=== PATIENT | female | born 1970 | race Caucasian/White ===

== ENCOUNTER → 2016-10-29 | Outpatient (REF) | payer OTHER ==
[2016-10-29 13:34] LABS: FOLLICLE STIMULATING HORMONE 61.1 mIU/mL; LUTEINIZING HORMONE 26.1 mIU/mL
== END ==
LOC: M LABDRAW1 12:00
PROVIDERS: ATTEND Internal Medicine
DX: E03.9 Hypothyroidism, unspecified (principal)

== ENCOUNTER → 2017-01-07 | Outpatient (REF) | payer OTHER | LOC: M LAB REF 16:53 | PROVIDERS: ATTEND Internal Medicine | DX: E03.9 Hypothyroidism, unspecified (principal) ==

== ENCOUNTER → 2017-02-19 | Outpatient (REF) | payer OTHER | LOC: M LAB REF 13:20 | PROVIDERS: ATTEND Internal Medicine | DX: E03.9 Hypothyroidism, unspecified (principal) ==

== ENCOUNTER → 2017-03-04 | Outpatient (REF) | payer OTHER ==
[2017-03-04 19:45] LABS: CONTROL LINE HCG INT CTR LINE PRESENT
== END ==
LOC: M LAB REF 18:57
PROVIDERS: ATTEND Internal Medicine
DX: R11.0 Nausea (principal)

== ENCOUNTER → 2017-05-08 | Outpatient (REF) | payer OTHER ==
[2017-05-08 16:29] LABS: TOTAL T3 121.6 NG/DL (60.0-181.0)
== END ==
LOC: M LAB REF 15:16
DX: E03.9 Hypothyroidism, unspecified (principal)

== ENCOUNTER → 2017-08-06 | Outpatient (REF) | payer OTHER ==
[2017-08-08 00:08] LABS: TISSUE TRANSGLUTAMINASE IgA <2 U/mL (0-3)
== END ==
LOC: M LAB REF 12:04
DX: K58.2 Mixed irritable bowel syndrome (principal)
CPT/HCPCS: 82784

== ENCOUNTER → 2018-01-20 | Outpatient (CLI) | payer OTHER | LOC: M OUTALCOH 10:35 | DX: Z13.89 Encounter for screening for other disorder (principal) ==

== ENCOUNTER 2018-01-30 14:45 | Outpatient (RCR) | payer OTHER | END 2018-02-21 | LOC: M OUTALCOH 14:45 | DX: Z03.89 Encounter for observation for other suspected diseases and conditions ruled out (principal) ==

== ENCOUNTER 2018-12-22 11:50 | Day surgery (SDC) | payer OTHER ==
[~2018-12-22] VITALS: Ht 160 cm; Wt 70.4 kg
[~2018-12-22 11:50] MED LIST: BUPIVACAINE HCL 0.25% 30 ML VIAL As Ordered ONE; BUPIVACAINE LIPOSOME/PF 1.3% 20ML VIAL (13.3MG/ML)(EXPAREL)(C9290 PER1MG) As Ordered ONE; BUPIVACAINE/EPIN 0.5% 30 ML VIAL As Ordered ONE; CELE1CAP4 PO; CYCL10TA PO; CelecoXIB 400 MG CAP PO ONE; DULO1CAP4 PO; EPINEPHrine INJ 1 MG/ML 1ML AMP As Ordered ONE; GABA-1171 PO; GABAPENTIN 300 MG CAP PO ONE; KLON1TAB PO; LR 1,000 ML IV ONE; PERCOCET 5MG/325MG TAB PO ONE; SYNT125T PO; THROMBIN SOLN 20,000 UNITS KIT As Ordered ONE; TRANEXAMIC ACID 100 MG/ML 10ML VIAL As Ordered ONE; TRIV1TAB2 PO; ceFAZolin SOD 2 GM in IV 1 EA IV ONE
[2018-12-22] MEDS ORDERED: BACITRACIN PWD 50,000 UNITS VIAL As Ordered ONE (11:51)
[2018-12-22] MEDS ORDERED: MIDAZOLAM INJ 2 MG/2 ML VIAL (J2250) As Ordered ONE (12:06)
[2018-12-22] MEDS ORDERED: fentaNYL 250 MCG/5 ML INJECTION (J3010) As Ordered ONE (12:06)
[2018-12-22] MEDS ORDERED: PROPOFOL 200 MG/20 ML VIAL As Ordered ONE (12:06)
[2018-12-22] MEDS ORDERED: LIDOCAINE 2% INJ 100 MG/5 ML SDV (FOR ANES.) As Ordered ONE (12:06)
[2018-12-22] MEDS ORDERED: ROCURONIUM BROMIDE 50 MG/5 ML VIAL As Ordered ONE (12:06)
[2018-12-22 12:52] LABS: URINE PREG TEST NEGATIVE (NEGATIVE)
[2018-12-22] MEDS ORDERED: METOCLOPRAMIDE INJ 10MG/2ML VIAL (J2765) As Ordered ONE (14:05)
[2018-12-22] MEDS ORDERED: KETOROLAC 60 MG/2 ML VIAL (J1885) As Ordered ONE (14:05)
[2018-12-22] MEDS ORDERED: ONDANSETRON 4MG/2ML VIAL (J2405) As Ordered ONE (14:05)
[2018-12-22] MEDS ORDERED: dexameTHASONE 4 MG/ML 1ML VIAL (J1100) As Ordered ONE (14:06)
[2018-12-22] MEDS ORDERED: fentaNYL 100 MCG/2 ML INJECTION (J3010) As Ordered ONE (15:56)
[2018-12-22] MEDS: LR 1,000 ML IV SCH (16:00)
[2018-12-22] MEDS ORDERED: PROMETHAZINE INJ 25 MG/ML VIAL (J2550) IV PRN ×2 (16:00→16:15)
[2018-12-22] MEDS ORDERED: PERCOCET 5MG/325MG TAB PO PRN (16:00)
[2018-12-22] MEDS ORDERED: CYCLOBENZAPRINE 10 MG TAB PO PRN (16:00)
--- NOTE | 2018-12-22 16:00 | REP ---
Partial lumbar spine series: Single view. Intra-op. History: Right L5-S1 micro-discectomy. Cross-table lateral portably obtained lumbar spine radiograph time stamped 2:11 p.m. demonstrates a intraoperative probe at the dorsal aspect of the lumbar canal at the level of the L5-S1 disc. Electronically Signed by Wally Guerra MD 12/22/2018 04:15 P
[2018-12-22] MEDS ORDERED: oxyCODONE 5MG TAB PO PRN (16:15)
[2018-12-22] MEDS ORDERED: HYDROmorphone HCL 2 MG/ML 1ML VIAL (J1170) IV PRN (16:15)
[2018-12-22] MEDS ORDERED: HYDROMORPHONE HCL 0.5 MG/ 0.5 ML SYRINGE (J1170 PER 1) IV PRN (16:15)
[2018-12-22] MEDS ORDERED: METOCLOPRAMIDE INJ 10MG/2ML VIAL (J2765) IV PRN (16:15)
[2018-12-22] MEDS ORDERED: fentaNYL 100 MCG/2 ML INJECTION (J3010) IV PRN (16:15)
[2018-12-22] MEDS ORDERED: LR 1,000 ML IV SCH (16:15)
[2018-12-22] MEDS ORDERED: ONDANSETRON 4MG/2ML VIAL (J2405) IV PRN (16:15)
[2018-12-22] MEDS ORDERED: LEVO200T31 PO (16:17)
[2018-12-22] MEDS ORDERED: CLON0.5T8 PO (16:17)
--- NOTE | 2018-12-22 19:00 | RO ---
DATE OF PROCEDURE: 12/22/2018 PREOPERATIVE DIAGNOSIS: Right L5-S1 disc extrusion producing right lower extremity radiculopathy. POSTOPERATIVE DIAGNOSIS: Right L5-S1 disc extrusion producing right lower extremity radiculopathy. PROCEDURE PERFORMED: Right L5-S1 microdiscectomy. FINDINGS: Include extruded subligamentous right-sided disc herniation near the pedicle of S1, elevating the S1 nerve root. SURGEON: Romero Jeter MD DIRECTOR OF COLLECTIONS: Solis West, Physician Certified Court/Medical Interpreter ANESTHESIA: General. ESTIMATED BLOOD LOSS: Less than 30 mL, replaced with crystalloid. No complications. INDICATIONS: Discomfort radiating down the right lower extremity, MRI evidence of disc extrusion. The patient has elected for operative intervention. Consent reviewed in detail including a rick discussion of the pathology involved, the procedure proposed, alternatives including doing nothing, the risks including but not limited to pain, failure, infection, bleeding, blood loss, incomplete relief of symptoms, nerve injury, need for more surgery and other issues. The patient agrees to proceed. DESCRIPTION OF PROCEDURE: Identified in the holding area, site and side verified, brought to the operating room. Once anesthesia was administered, she was positioned on the Brad frame for exposure of the lumbar spine, knees slightly flexed. Axillary rolls were utilized, Brad frame elevated. Once I and the acute care clinical nurse specialist were comfortable with the patient's positioning, she was then sterilely prepped and draped in the usual fashion. We palpated bony landmarks. Mr. West outlined the incision, and I confirmed the incision by palpation. We infiltrated the incision with 0.25% Marcaine with epinephrine. Next, I utilized 3.5 loupe magnification and a headlamp at the first portion of the procedure and later we brought in the sterilely draped operative microscope. I looked through oculars on the right, Mr. West on the left. The incision was 2 cm, made with a 10 blade, developed down through skin and subcuticular tissues to the posterior lumbar fascia. Posterior lumbar fascia was reflected off the spinous process of L5 and S1, and I dissected out along the L5 lamina. I drilled the divot using the high-speed bur and the posterior L5 lamina, placed the Tafoya Clark probe, obtained a cross-table lateral x-ray to verify our level. Once this was accomplished, I exchanged my loupe and headlamp for the microscope. We placed the cervical Shadow-Line/Versa-Trac retractor and used that as there were smaller blades to facilitate the 2 cm incision. Next, I utilized the use of the microscope, facilitated participation of Mr. West as well as use of the high-speed bur. The high-speed bur was then utilized to implement a right unilateral laminotomy of the L5 level extending superiorly toward the bare area of L5. The facet complex was only lightly debrided, less than 10% of the medial wall of the facet complex inferiorly to the bare area of S1. I then elevated the ligamentum flavum using a #4-0 curette and then removed it using Kerrisons and pituitaries exposing the thecal sac. The traversing S1 nerve root was appreciated to be elevated, and I used the Tafoya Clark probe to sweep the nerve root medially. There was a significant lateral subligamentous disc extrusion. Mr. West utilized the suction Jan retractor to help protect the nerve root while I freed the extrusion from the subligamentous position using the Tafoya Clark. I also opened the posterior longitudinal ligament using the #11 blade and removed disc material piecemeal fashion, some was also sucked up using the suction. I also probed the annulus and no remove disc material was achieved there. I swept out to the neural foramina, which was appreciated to be free of disc material, and we explored around the thecal sac and S1 nerve root. Next, bipolar cautery was utilized for hemostasis along with thrombin Gelfoam, which was removed at the conclusion of the case. We inspected the thecal sac. No active bleeding. No active cerebrospinal fluid (CSF) leaks. We removed retractors. We did have TXA on the field, so we utilized the TXA as well as irrigation. We also utilized Exparel for local anesthetic in the fascial tissue and subcuticular tissue. We closed the posterior fascia with interrupted stitch, deep dermis with interrupted stitch, subcuticular with interrupted Vicryl stitch followed by a Prineo dressing applied. Next, once this was done, the patient was able to be moved to the hospital bed, extubated, and moved to the recovery room in good condition. For further details, please refer to the medical record.
[2018-12-22] MEDS ORDERED: NS 500 ML IV ONE (19:45)
[2018-12-22 20:00] VITALS: BP 112/77
[2018-12-22] MEDS ORDERED: clonazePAM 0.5 MG TAB PO SCH (21:00)
[2018-12-22] MEDS ORDERED: ceFAZolin SOD 2 GM in IV 1 EA IV ONE (21:30)
[2018-12-22] MEDS: METAMUCIL (PSYLLIUM) PACKET PO SCH (21:46)
[2018-12-23 02:00] VITALS: BP 117/70
[2018-12-23] MEDS: LR 1,000 ML IV SCH (02:00)
[2018-12-23 04:00] VITALS: BP 116/70
[2018-12-23] MEDS ORDERED: LEVOTHYROXINE 100MCG TABLET (0.1MG) PO SCH (06:00)
[2018-12-23] MEDS: PERCOCET 5MG/325MG TAB PO PRN ×2 (06:22→12:14)
[2018-12-23] MEDS ORDERED: PERC5TAB12 PO (06:26)
[2018-12-23] MEDS: METAMUCIL (PSYLLIUM) PACKET PO SCH (08:13)
[2018-12-23] MEDS ORDERED: CelecoXIB (CeleBREX) 100 MG CAP PO SCH (09:00)
[2018-12-23] MEDS ORDERED: BISACODYL 10 MG SUPP PR ONE (09:00)
== END 2018-12-23 12:30 | disposition home or self-care (01) ==
LOC: M SDC 11:50 → M MS5PR 16:45 → M SDC 12-23 12:30
PROVIDERS: ATTEND Orthopaedic Surgery
DX: M51.26 Other intervertebral disc displacement, lumbar region (principal); M51.16 Intervertebral disc disorders with radiculopathy, lumbar region; E03.9 Hypothyroidism, unspecified; F32.9 Major depressive disorder, single episode, unspecified; G43.909 Migraine, unspecified, not intractable, without status migrainosus; Z79.899 Other long term (current) drug therapy
CPT/HCPCS: 36415; 63030; 72100; 84703; 86850; 86900; 86901; 88304; 96361; 96374; C9290; J0690; J1100; J1885; J2250; J2405; J2765; J3010

== ENCOUNTER → 2019-01-16 | Outpatient (REF) | payer OTHER ==
[~2019-01-16] MED LIST changes: -BUPIVACAINE HCL 0.25% 30 ML VIAL As Ordered ONE; -BUPIVACAINE LIPOSOME/PF 1.3% 20ML VIAL (13.3MG/ML)(EXPAREL)(C9290 PER1MG) As Ordered ONE; -BUPIVACAINE/EPIN 0.5% 30 ML VIAL As Ordered ONE; +CLON0.5T8 PO; -CelecoXIB 400 MG CAP PO ONE; -EPINEPHrine INJ 1 MG/ML 1ML AMP As Ordered ONE; -GABAPENTIN 300 MG CAP PO ONE; +LEVO200T31 PO; -LR 1,000 ML IV ONE; +PERC5TAB12 PO; -PERCOCET 5MG/325MG TAB PO ONE; -THROMBIN SOLN 20,000 UNITS KIT As Ordered ONE; -TRANEXAMIC ACID 100 MG/ML 10ML VIAL As Ordered ONE; -ceFAZolin SOD 2 GM in IV 1 EA IV ONE
== END ==
LOC: M LAB REF 11:18
PROVIDERS: ATTEND Internal Medicine
DX: R19.7 Diarrhea, unspecified (principal)

== ENCOUNTER → 2020-07-22 | Outpatient (CLI) | payer OTHER ==
[~2020-07-22] MED LIST changes: +CLON0.5T2 PO; -CLON0.5T8 PO; +CYCL-707 PO; -CYCL10TA PO
== END ==
LOC: M SLEEP 20:00
PROVIDERS: ATTEND Nurse Practitioner Family
DX: R06.83 Snoring (principal)

== ENCOUNTER → 2020-12-05 | Outpatient (CLI) | payer OTHER ==
[~2020-12-05] MED LIST changes: +ALBU8.5H INH; +DULO1CAP6 PO
== END ==
LOC: M LABSMTC 09:23
PROVIDERS: ATTEND Anesthesiology
DX: Z01.812 Encounter for preprocedural laboratory examination (principal)

== ENCOUNTER 2020-12-09 07:24 | Day surgery (SDC) | payer OTHER ==
[~2020-12-09] VITALS: Ht 160 cm; Wt 71.2 kg
[~2020-12-09 07:24] MED LIST changes: +GNP250TA9 PO; +NS 1,000 ML IV ONE
[2020-12-09] MEDS ORDERED: LIDOCAINE 2% 100MG/5ML SDV (FOR ANES.) As Ordered ONE (08:24)
[2020-12-09] MEDS ORDERED: propofoL 500 MG/50 ML VIAL As Ordered ONE (08:24)
--- NOTE | 2020-12-09 08:28 | ROOR ---
Patient Name: Néstor Mendez Procedure Date: 12/09/2020 8:07 AM Date of : 1970 Age: 50 Room: [facility] Gender: Female Note Status: Finalized Procedure: Total Colonoscopy to Cecum + ileoscopy Indications: Screening for colorectal malignant neoplasm Providers: Rosas Zhong MD Referring MD: She MORALES MD Requesting Provider: Medicines: Monitored Anesthesia Care Complications: No immediate complications. Procedure: Pre-Anesthesia Assessment: - The heart rate, respiratory rate, oxygen saturations, blood pressure, adequacy of pulmonary ventilation, and response to care were monitored throughout the procedure. The Colonoscope was introduced through the anus and advanced to the terminal ileum, with identification of the appendiceal orifice and IC valve. The colonoscopy was performed without difficulty. The patient tolerated the procedure well. The quality of the bowel preparation was excellent. Findings: The perianal and digital rectal examinations were normal. Non-bleeding internal hemorrhoids were found during retroflexion. The hemorrhoids were small and Grade I (internal hemorrhoids that do not prolapse). No other significant abnormalities were identified in a careful examination of the remainder of the colon. The terminal ileum appeared normal. The exam was otherwise without abnormality on direct and retroflexion views. Impression: - Non-bleeding internal hemorrhoids. - The examined portion of the ileum was normal. - The examination was otherwise normal on direct and retroflexion views. - No specimens collected. - The exam was otherwise normal to the cecum. Recommendation: - Patient has a contact number available for emergencies. The signs and symptoms of potential delayed complications were discussed with the patient. Return to normal activities tomorrow. Written discharge instructions were provided to the patient. - High fiber diet. - Discharge patient to home. - Continue present medications. - Repeat colonoscopy in 10 years for screening purposes. - Return to referring physician. - The findings and recommendations were discussed with the patient. Procedure Code(s): --- Professional --- 15805, Colonoscopy, flexible; diagnostic, including collection of specimen(s) by brushing or washing, when performed (separate procedure) Diagnosis Code(s): --- Professional --- Z12.11, Encounter for screening for malignant neoplasm of colon K64.0, First degree hemorrhoids CPT copyright 2019 [employer]. All rights reserved. The codes documented in this report are preliminary and upon press operator meat review may be revised to meet current compliance requirements. Rosas Zhong MD Rosas Zhong MD 12/09/2020 8:27:56 AM Electronically signed by Rosas Zhong MD Number of Addenda: 0 Note Initiated On: 12/09/2020 8:07 AM Estimated Blood Loss: Estimated blood loss: none.
[2020-12-09 08:45] VITALS: BP 138/88
== END 2020-12-09 08:53 | disposition home or self-care (01) ==
LOC: M OPP 07:24
PROVIDERS: ATTEND Internal Medicine Gastroenterology
DX: Z12.11 Encounter for screening for malignant neoplasm of colon (principal); K64.0 First degree hemorrhoids; Z79.899 Other long term (current) drug therapy

== ENCOUNTER → 2021-05-01 | Outpatient (CLI) | payer OTHER ==
[~2021-05-01] MED LIST changes: +E-Z-GAS II EFFERVESCENT PACKET (SODIUM BICARB./CITRIC ACID/SIMETHICONE) As Ordered ONE; +E-Z-HD 98% w/w 340GM SUSP BTL As Ordered ONE; +E-Z-PAQUE 96% w/w SUSP 176GM BTL As Ordered ONE; -NS 1,000 ML IV ONE
== END ==
LOC: M RAD 07:48
PROVIDERS: ATTEND Internal Medicine
DX: K30 Functional dyspepsia (principal)

== ENCOUNTER → 2022-03-01 | Outpatient (REF) | payer OTHER ==
[~2022-03-01] MED LIST changes: -E-Z-GAS II EFFERVESCENT PACKET (SODIUM BICARB./CITRIC ACID/SIMETHICONE) As Ordered ONE; -E-Z-HD 98% w/w 340GM SUSP BTL As Ordered ONE; -E-Z-PAQUE 96% w/w SUSP 176GM BTL As Ordered ONE
== END ==
LOC: M SFHCDERM 14:03
PROVIDERS: ATTEND Nurse Practitioner Family
DX: D48.9 Neoplasm of uncertain behavior, unspecified (principal); L82.0 Inflamed seborrheic keratosis

== ENCOUNTER → 2023-11-15 | Outpatient (REF) | payer OTHER ==
[~2023-11-15] MED LIST changes: -KLON1TAB PO; +KLON1TAB13 PO
[2023-11-15 12:28] LABS: FOLLICLE STIMULATING HORMONE 107.4 mIU/ML; LUTEINIZING HORMONE 60.7 mIU/ML
== END ==
LOC: M LAB REF 12:03
PROVIDERS: ATTEND Internal Medicine
DX: E03.9 Hypothyroidism, unspecified (principal)

== ENCOUNTER → 2024-02-18 | Outpatient (REF) | payer OTHER ==
[2024-02-19 13:45] LABS: HEPATITIS B SURFACE ANTIGEN NEGATIVE (NEGATIVE)
[2024-02-19 14:06] LABS: HEPATITIS B CORE ANTIBODY IGM NEGATIVE (NEGATIVE); HEPATITIS C VIRUS ABY INDEX 0.16 INDEX (<0.8)
== END ==
LOC: M LAB REF 12:18
PROVIDERS: ATTEND Internal Medicine
DX: R74.01 Elevation of levels of liver transaminase levels (principal)

== ENCOUNTER 2024-07-22 07:46 | Day surgery (SDC) | payer OTHER ==
[~2024-07-22] VITALS: Ht 161.3 cm; Wt 78.9 kg
[2024-07-22] MEDS ORDERED: DULO1CAP6 PO (07:52)
[2024-07-22] MEDS ORDERED: PROG1CAP8 PO (07:52)
[2024-07-22 08:19] LABS: BASO # 0.1 10^3/uL (0.0-0.2); BASO % 0.4 % (0.0-1.0); EOS # 0.1 10^3/uL (0.0-0.5); EOS % 0.7 % (0.0-3.0); LYMPH # 1.6 10^3/uL (1.5-5.0); LYMPH % 14.1 % (24.0-44.0); MEAN CORPUSCULAR HEMOGLOBIN 30.8 pg (27.0-33.0); MEAN CORPUSCULAR HGB CONC 33.3 g/dl (32.0-36.5); MEAN CORPUSCULAR VOLUME 92.5 fl (80.0-96.0); MONO # 0.7 10^3/uL (0.0-0.8); MONO % 6.4 % (2.0-8.0); NEUTROPHILS % 78.2 % (36.0-66.0); PLATELET COUNT, AUTOMATED 242 10^3/uL (150-450); RED BLOOD COUNT 4.54 10^6/uL (4.00-5.40); WHITE BLOOD COUNT 11.5 10^3/uL (4.0-10.0)
[2024-07-22 08:59] LABS: BILIRUBIN,DIRECT 0.1 MG/DL (<0.4); BILIRUBIN,TOTAL 0.5 MG/DL (0.3-1.2); CALCIUM LEVEL 9.3 MG/DL (8.5-10.1); CREATININE FOR GFR 0.85 MG/DL (0.55-1.30); GLOMERULAR FILTRATION RATE 81.9 (>51); TOTAL PROTEIN 7.3 G/DL (5.7-8.2)
[2024-07-22] MEDS ORDERED: ISOVUE-370 76% 100ML VIAL As Ordered ONE (09:09)
[2024-07-22] MEDS: ONDANSETRON 4MG 2ML VIAL IV ONE (09:24)
[2024-07-22] MEDS: fentaNYL 100 MCG/2 ML INJECTION IV PRN (09:25)
[2024-07-22] MEDS: NS (Normal Saline) 0.9% 1,000 ML IV SCH ×2 (09:48→19:13)
[2024-07-22] MEDS: PIPERACILLIN/TAZOBACTAM SOD 3.375 GM in DEXTROSE 5% (D5W) ADV/MINI-BAG 50 ML IV ONE (09:49)
[2024-07-22] MEDS ORDERED: DULO1CAP5 PO (10:54)
[2024-07-22] MEDS ORDERED: LEVO150T7 PO (10:56)
[2024-07-22] MEDS ORDERED: HOME MED LIST COMPLETE! XX SCH (11:00)
[2024-07-22] MEDS: KETOROLAC 30 MG/ML 1ML VIAL IV ONE (12:44)
[2024-07-22] MEDS ORDERED: NS (Normal Saline) 0.9% 1,000 ML IV SCH (14:35)
[2024-07-22] MEDS ORDERED: PIPERACILLIN/TAZOBACTAM SOD 3.375 GM in DEXTROSE 5% (D5W) ADV/MINI-BAG 50 ML IV SCH (16:00)
[2024-07-22] MEDS ORDERED: ONDANSETRON 4MG 2ML VIAL As Ordered ONE (16:32)
[2024-07-22] MEDS ORDERED: propofoL 200 MG/20 ML VIAL As Ordered ONE (16:32)
[2024-07-22] MEDS ORDERED: LIDOCAINE 2% 100MG/5ML SDV (FOR ANES.) As Ordered ONE (16:32)
[2024-07-22] MEDS ORDERED: ROCURONIUM BROMIDE 50MG/5ML VIAL As Ordered ONE (16:32)
[2024-07-22] MEDS ORDERED: SUGAMMADEX SODIUM 500 MG/5 ML VIAL (BRIDION) As Ordered ONE (16:35)
[2024-07-22] MEDS ORDERED: MIDAZOLAM INJ 2MG/2ML VIAL As Ordered ONE (16:36)
[2024-07-22] MEDS ORDERED: fentaNYL 100 MCG/2 ML INJECTION As Ordered ONE (16:36)
[2024-07-22] MEDS: SCOPOLAMINE 1MG TRANSDERMAL PATCH As Ordered ONE (16:43)
[2024-07-22] MEDS ORDERED: ACETAMINOPHEN 1000MG/100ML IV BAG As Ordered ONE (16:45)
[2024-07-22] MEDS: ZOSYN 3.375GM VIAL As Ordered ONE (17:12)
[2024-07-22] MEDS ORDERED: KETOROLAC 30 MG/ML 1ML VIAL As Ordered ONE (17:27)
[2024-07-22] MEDS ORDERED: GLYCOPYRROLATE INJ 0.2 MG/ML 2 ML VIAL As Ordered ONE (17:27)
[2024-07-22] MEDS ORDERED: ePHEDrine SULFATE 25 MG/5 ML(5MG/ML) SYRINGE As Ordered ONE (17:30)
[2024-07-22] MEDS ORDERED: PHENYLephrine 500MCG 5ML (100MCG/ML) SYRINGE As Ordered ONE (17:30)
[2024-07-22] MEDS ORDERED: MORPHINE 2 MG/ML 1ML VIAL IV PRN ×2 (18:00)
[2024-07-22] MEDS ORDERED: HYDROMORPHONE HCL 0.5 MG/ 0.5 ML SYRINGE IV PRN (18:00)
[2024-07-22] MEDS ORDERED: ONDANSETRON 4MG 2ML VIAL IV PRN ×2 (18:00)
[2024-07-22] MEDS ORDERED: METOCLOPRAMIDE INJ 10MG/2ML VIAL IV PRN (18:00)
[2024-07-22] MEDS ORDERED: MORPHINE 4 MG/ML 1ML VIAL IV PRN (18:00)
[2024-07-22] MEDS ORDERED: fentaNYL 100 MCG/2 ML INJECTION IV PRN (18:00)
[2024-07-22 18:50] VITALS: BP 125/72; TEMP 97.3; O2SAT 95
[2024-07-22] MEDS: LR 1,000 ML IV SCH (19:12)
[2024-07-22] MEDS: RACEPINEPHrine 2.25% UD INHAL INH ONE (19:13)
[2024-07-22] MEDS: oxyCODONE 5MG TAB PO PRN (19:33)
[2024-07-22 19:40] VITALS: BP 131/93; TEMP 97.7; O2SAT 98
[2024-07-22] MEDS ORDERED: PERCOCET 5MG/325MG TAB PO PRN (20:10)
[2024-07-22 20:42] VITALS: BP 132/87; TEMP 97.8; O2SAT 96
[2024-07-22] MEDS: PANTOPRAZOLE 40MG VIAL IV SCH (21:11)
[2024-07-22] MEDS: PIPERACILLIN/TAZOBACTAM SOD 3.375 GM in DEXTROSE 5% (D5W) ADV/MINI-BAG 50 ML IV SCH (21:11)
[2024-07-22 21:42] VITALS: BP 133/84; TEMP 97.2; O2SAT 95
[2024-07-22 22:43] VITALS: BP 127/78; TEMP 97.6; O2SAT 94
[2024-07-22] MEDS: PERCOCET 5MG/325MG TAB PO PRN (22:47)
[2024-07-22] MEDS: KETOROLAC 30 MG/ML 1ML VIAL IV SCH (23:09)
[2024-07-23] VITALS: BP 103/63; TEMP 97.5; O2SAT 92
[2024-07-23 05:28] VITALS: BP 143/69; TEMP 97.9; O2SAT 96
[2024-07-23] MEDS: MIRALAX *UNIT DOSE* 17GM PACKET PO SCH (09:06)
[2024-07-23] MEDS ORDERED: IBUP-1022 PO (09:19)
[2024-07-23] MEDS ORDERED: PERCOCET PO (09:19)
== END 2024-07-23 13:20 | disposition home or self-care (01) ==
LOC: M ED 07:46 → M SDC 12:16 → UNDOADMOB 12:17 → M MS5PR 12:17 → UNDODISOB 07-23 13:20 → M SDC 07-23 13:20
PROVIDERS: ATTEND Surgery
DX: K35.890 Other acute appendicitis without perforation or gangrene (principal); E03.9 Hypothyroidism, unspecified; K58.8 Other irritable bowel syndrome; F41.9 Anxiety disorder, unspecified; F32.A Depression, unspecified; Z79.899 Other long term (current) drug therapy
CPT/HCPCS: 44970; 71045; 74177; 80048; 80076; 83605; 83690; 85025; 87040; 88304; 93005; 96361; 96365; 96366; 96375; 96376; 99285; J0131; J0665; J1100; J1596; J1885; J2250; J2371; J2405; J2470; J2543; J3010; Q9967

== ENCOUNTER → 2024-07-24 | Outpatient (REF) | payer OTHER ==
[~2024-07-24] MED LIST changes: +DULO1CAP5 PO; +IBUP-1022 PO; +LEVO150T7 PO; +PERCOCET PO; +PROG1CAP8 PO
== END ==
LOC: M LAB REF 12:51
PROVIDERS: ATTEND Internal Medicine
DX: M54.50 Low back pain, unspecified (principal); M25.521 Pain in right elbow

== ENCOUNTER → 2024-12-02 | Outpatient (REF) | payer OTHER ==
[~2024-12-02] MED LIST changes: -IBUP-1022 PO; +IBUP600T42 PO
== END ==
LOC: M LAB REF 11:52
PROVIDERS: ATTEND Nurse Practitioner Adult Health
DX: N39.0 Urinary tract infection, site not specified (principal)